=== PATIENT | male | born 1940 | race Caucasian/White ===

== ENCOUNTER 2017-06-26 12:15 | Day surgery (SDC) | payer OTHER, BC ==
[~2017-06-26] VITALS: Ht 190.5 cm; Wt 109.8 kg
[~2017-06-26 12:15] MED LIST: AMLODIPINE BESY10 MG PO; AMOXICILLIN500 MG PO; ATROVENT H200 INHALA IH; FIBER THERAPY0.52 GM PO; FLONASE16 G1 BOTH NARES; IRBESARTAN300 MG PO; LASIX40 MG PO; MULTIVITAMIN1 EAC2 PO; STOOL SOFTENER100 MG PO; WARFARIN SODIUM4 MG PO
[2017-06-26 17:42] VITALS: BP 151/69
[2017-06-26 19:15] VITALS: BP 174/70
[2017-06-27 00:07] VITALS: BP 125/67
[2017-06-27 05:00] VITALS: BP 159/73
[2017-06-27 07:00] VITALS: BP 151/75
== END 2017-06-27 12:09 | disposition home or self-care (01) ==
LOC: CATH 12:15 → ENRESERV 12:20 → CATH 13:30 → ENRESERV 16:03 → 4EAST 17:29
DX: I49.5 Sick sinus syndrome (principal); I48.91 Unspecified atrial fibrillation; I10 Essential (primary) hypertension; I71.2 Thoracic aortic aneurysm, without rupture; G47.33 Obstructive sleep apnea (adult) (pediatric); Z95.2 Presence of prosthetic heart valve; Z79.01 Long term (current) use of anticoagulants
CPT/HCPCS: 71010; 93005; 94640; 94660; 99202; C1785; C1892; C1894; C1898; G0378; J0690; J1200; J2250; J3010; S0020